=== PATIENT | female | born 2000 | race Native Hawaiian/Other Pacific Islander ===

== ENCOUNTER → 2021-10-24 08:53 | Outpatient (CLI) | payer OTHER, SELFPAY ==
[2021-10-24 10:24] LABS: Alanine Aminotransferase 16 IU/L (<35); Albumin 4.2 g/dL (3.5-5.0); Albumin Globulin Ratio 1.6 (1.0-2.8); Alkaline Phosphatase 68 U/L (38-126); Aspartate Aminotransferase 18 IU/L (14-36); BUN Creatinine Ratio 13.5 (6-22); Bilirubin Total 0.4 mg/dL (0.2-1.3); Blood Urea Nitrogen 10 mg/dL (7-17); Calcium 9.2 mg/dL (8.4-10.2); Carbon Dioxide 22 mmol/L (22-32); Chloride 108 mmol/L (98-107); Cholesterol 155 mg/dL (140-199); Estimated Glomerular Filt Rate > 60 mL/min (>60); Globulin 2.7 g/dL (1.7-4.1); Glucose 83 mg/dL (70-100); HDL Cholesterol 42 mg/dL (40-60); HEMOLYSIS < 15 (0-50); LDL Cholesterol Calculated 95 mg/dL (<100); Potassium 4.4 mmol/L (3.4-5.1); Sodium 139 mmol/L (137-145); Total Protein 6.9 g/dL (6.3-8.2); Triglycerides 88 mg/dL (35-150)
[2021-10-24 10:43] LABS: Prolactin 3.1 ng/mL (3.0-18.6)
[2021-10-25 07:36] LABS: Insulin Level Total 11.4 uIU/mL (2.6-24.9)
== END ==
PROVIDERS: Referring Provider Obstetrics & Gynecology; Visit Provider Obstetrics & Gynecology
DX: Z00.00 Encounter for general adult medical examination without abnormal findings (principal); E28.2 Polycystic ovarian syndrome; E66.9 Obesity, unspecified
CPT/HCPCS: 36415; 80053; 80061; 83525; 84146

== ENCOUNTER → 2021-11-12 07:39 | Outpatient (CLI) | payer OTHER, SELFPAY ==
[2021-11-12 08:52] LABS: Prolactin 3.2 ng/mL (3.0-18.6)
== END ==
PROVIDERS: Referring Provider Obstetrics & Gynecology; Visit Provider Obstetrics & Gynecology
DX: Z00.00 Encounter for general adult medical examination without abnormal findings (principal)
CPT/HCPCS: 36415; 84146

== ENCOUNTER → 2021-12-12 06:36 | Outpatient (CLI) | payer OTHER, SELFPAY ==
--- NOTE | 2021-12-12 | DI.US.S_ITS ---
PROCEDURE: US TRANSVAGINAL COMPARISON: None. INDICATIONS: Encounter for fertility testing FINDINGS: The uterine body is retroverted measuring 3.3 x 3.7 x 6.6 cm. No uterine mass. Normal trilaminar appearance of the endometrium measuring 1 cm in thickness. The right ovary measures 2.3 x 2.6 x 4.1 cm (volume 12.3 cubic cm). There are total of 29 follicles in the right ovary, 28 of which measure less than 1 cm in maximum diameter. The remaining follicle measures 1.2 x 1.8 x 1.9 cm. The left ovary measures 2.9 x 4.0 x 5.1 cm (volume 29 cubic cm). There are a total of 20 follicles in the left ovary, 17 of which measure less than 1 cm. Three follicles measuring greater than 1 cm with the following dimensions 1.0 x 1.8 x 1.9 cm; 2.1 x 2.3 x 2.8 cm; and 2.0 x 2.1 x 2.4 cm. There is also what appears to represent hemorrhagic cyst in the left ovary measuring 2.1 x 2.2 x 2.4 cm. Trace free fluid anterior to the left adnexa. IMPRESSION: Numerous bilateral follicles - 29 total in the right ovary and 20 total in the left ovary. Dictated by: Luke Contreras M.D. on 12/12/2021 at 8:40 Approved by: Luke Contreras M.D. on 12/12/2021 at 8:45
== END ==
PROVIDERS: Referring Provider Obstetrics & Gynecology; Visit Provider Obstetrics & Gynecology
DX: Z31.41 Encounter for fertility testing (principal)
CPT/HCPCS: 76830

== ENCOUNTER → 2022-01-12 08:25 | Outpatient (CLI) | payer OTHER, SELFPAY ==
--- NOTE | 2022-01-12 | DI.US.S_ITS ---
PROCEDURE: US PELVIC COMPLETE INDICATIONS: Encounter for other procreative management TECHNIQUE: Real-time scanning was performed of the pelvic organs, with image documentation. Additional endovaginal scanning was necessary due to incomplete visualization of the adnexal and endometrial structures by transabdominal scanning. COMPARISON: [facility], US, US TRANSVAGINAL, 12/12/2021, 7:58. [facility]ound, US, US PELVIC COMPLETE WITH TRANSVAGINAL, 12/03/2021, 8:32. FINDINGS: Uterus: Uterus is retroverted and normal in size at 7.4 x 4 x 6 x 3.7 cm. The myometrium is homogeneous. The endometrium measures 7.6 mm combined thickness. Ovaries: The right ovary measures 4.1 x 3.5 x 2.9 cm. The left ovary measures 4.2 x 2 x 2 x 3.6 cm. The ovaries have a normal sonographic appearance. No adnexal masses are seen. Follicle count: Right ovary: 24 follicles smaller than 10 mm, 4 follicles larger than 10 mm 11 x 11 x 9 mm 23 x 13 x 8 mm 28 x 20 x 22 mm 13 x 13 x 7 mm Left ovary: 16 follicles smaller than 10 mm, 2 follicles larger than 10 mm. 12 x 13 x 11 mm 14 x 12 x 13 mm Other: A mild amount of free pelvic fluid is seen, which is considered to be within physiologic limits. IMPRESSION: Follicle count above. We strive to produce accurate, complete, and clear reports of imaging services. To assist us in improving patient care, this report was composed using standard report templates and voice recognition software. Therefore, it may contain abnormal punctuation, insertions and/or omissions. Occasional wrong-word or sound-alike substitutions may occur. Though we review the report and make efforts to correct it, we do recommend that the report be read carefully in proper context to recognize any text inaccuracies. Dictated by: Sy Dow M.D. on 01/12/2022 at 9:42 Approved by: Sy Dow M.D. on 01/12/2022 at 9:45
== END ==
PROVIDERS: Referring Provider Obstetrics & Gynecology; Visit Provider Obstetrics & Gynecology
DX: Z31.89 Encounter for other procreative management (principal)
CPT/HCPCS: 76830; 76856

== ENCOUNTER → 2022-02-11 07:43 | Outpatient (CLI) | payer OTHER, SELFPAY ==
--- NOTE | 2022-02-11 | DI.US.S_ITS ---
PROCEDURE: US PELVIC COMPLETE INDICATIONS: FOLLICLE COUNT AND ENDOMETRIAL TYPE TECHNIQUE: Real-time scanning was performed of the pelvic organs, with image documentation. Additional endovaginal scanning was necessary due to incomplete visualization of the adnexal and endometrial structures by transabdominal scanning. COMPARISON: [facility], , US PELVIC COMPLETE, 01/12/2022, 9:34. FINDINGS: Uterus: Uterus is retroverted and normal in size at 6.5 x 3.9 x 3.7 cm. The myometrium is homogeneous. The endometrium measures 9 mm combined thickness. Trilaminar appearance. Ovaries: The right ovary measures 3.6 x 2.1 x 2.2 cm, with a calculated ovarian volume of 9 cc. Greater than 29 follicles are present, all less than 10 millimeters. The left ovary measures 4.5 x 1.9 x 2.2 cm, with a calculated ovarian volume of 10 cc. Approximately 27 are greater follicles present, 4 are 10 mm or greater: -1.0 x 1.0 x 0.7 centimeters -1.5 x 1.0 x 0.8 centimeters -0.9 x 1.0 x 0.4 centimeters -0.9 x 1.1 x 0.6 centimeters No adnexal masses are seen. Other: No pathologic free abdominal or pelvic fluid. IMPRESSION: Follicle count as above. We strive to produce accurate, complete, and clear reports of imaging services. To assist us in improving patient care, this report was composed using standard report templates and voice recognition software. Therefore, it may contain abnormal punctuation, insertions and/or omissions. Occasional wrong-word or sound-alike substitutions may occur. Though we review the report and make efforts to correct it, we do recommend that the report be read carefully in proper context to recognize any text inaccuracies. Dictated by: Suhas Luna M.D. on 02/11/2022 at 12:53 Approved by: Suhas Luna M.D. on 02/11/2022 at 13:05
== END ==
PROVIDERS: Referring Provider Obstetrics & Gynecology; Visit Provider Obstetrics & Gynecology
DX: Z31.89 Encounter for other procreative management (principal)
CPT/HCPCS: 76830; 76856

== ENCOUNTER → 2022-03-16 08:09 | Outpatient (CLI) | payer OTHER, SELFPAY ==
--- NOTE | 2022-03-16 | DI.US.S_ITS ---
PROCEDURE: US TRANSVAGINAL INDICATIONS: FOLLICULAR DEVELOPMENT AND ENDO TYPE. TECHNIQUE: Real-time transvaginal scanning was performed of the pelvic organs, with image documentation. COMPARISON: [facility], , US TRANSVAGINAL, 12/12/2021, 7:58. FINDINGS: Uterus: Uterus is retroverted and normal in size at 7.1 x 4.4 x 3.5 cm. The myometrium is homogeneous. The endometrium measures 8 mm combined thickness. Probable proliferative phase endometrium. Small volume of complex fluid likely present in the uterine cavity. Ovaries: The right ovary measures 3.6 x 2.2 x 2.0 cm, with a calculated ovarian volume of 8 cc. Multiple follicles are present, at least 28. One follicle is 1 centimeter or greater in size, measuring 1.0 x 1.0 x 0.7 centimeters. The left ovary measures 4.2 x 2.0 x 2.3 cm, with a calculated ovarian volume of 10 cc. Multiple follicles are present, at least 29. One follicle is 1 centimeter or greater in size, measuring 1.0 x 1.3 x 0.9 centimeters. No adnexal masses are seen. Other: No pathologic free abdominal or pelvic fluid. IMPRESSION: 1. Multiple small follicles present in both ovaries. 2. Endometrial thickness of 8 millimeters. We strive to produce accurate, complete, and clear reports of imaging services. To assist us in improving patient care, this report was composed using standard report templates and voice recognition software. Therefore, it may contain abnormal punctuation, insertions and/or omissions. Occasional wrong-word or sound-alike substitutions may occur. Though we review the report and make efforts to correct it, we do recommend that the report be read carefully in proper context to recognize any text inaccuracies. Dictated by: Suhas Luna M.D. on 03/16/2022 at 9:19 Approved by: Suhas Luna M.D. on 03/16/2022 at 9:28
== END ==
PROVIDERS: Referring Provider Obstetrics & Gynecology; Visit Provider Obstetrics & Gynecology
DX: Z31.89 Encounter for other procreative management (principal); N83.9 Noninflammatory disorder of ovary, fallopian tube and broad ligament, unspecified
CPT/HCPCS: 76830

== ENCOUNTER → 2024-04-03 17:13 | Outpatient (CLI) | payer OTHER, SELFPAY ==
--- NOTE | 2024-04-03 | DI.RAD.S_ITS ---
PROCEDURE: XR KNEE RT 1TO2V INDICATIONS: KNEE PAIN TECHNIQUE: 2 views of the knee were acquired. COMPARISON: None. FINDINGS: Bones: No fractures or dislocations. No suspicious bony lesions. Soft tissues: Small joint effusion. No suspicious soft tissue calcifications. IMPRESSION: Small right knee joint effusion, otherwise no acute bony abnormality. Dictated by: Abner Villasenor M.D. on 04/03/2024 at 21:59 Approved by: Abner Villasenor M.D. on 04/03/2024 at 21:59
--- NOTE | 2024-04-03 | DI.RAD.S_ITS ---
PROCEDURE: XR KNEE LT 1TO2V INDICATIONS: KNEE PAIN TECHNIQUE: 1 views of the knee were acquired. COMPARISON: None. FINDINGS: Bones: No fractures or dislocations. No suspicious bony lesions. Soft tissues: No joint effusion. No suspicious soft tissue calcifications. IMPRESSION: No acute bony abnormality or significant effusion. Dictated by: Abner Villasenor M.D. on 04/03/2024 at 21:58 Approved by: Abner Villasenor M.D. on 04/03/2024 at 21:58
== END ==
PROVIDERS: PCP Registered Nurse; Referring Provider Registered Nurse; Visit Provider Registered Nurse
DX: M25.561 Pain in right knee (principal); M25.562 Pain in left knee; M25.461 Effusion, right knee; G89.29 Other chronic pain
CPT/HCPCS: 73560

== ENCOUNTER → 2024-07-07 16:13 | Outpatient (CLI) | payer OTHER, SELFPAY ==
--- NOTE | 2024-07-07 16:14 | DI.MRI.S_ITS ---
PROCEDURE: MR BRAIN (PITUITARY) WWO CON INDICATIONS: PITUITARY ADENOMA TECHNIQUE: Noncontrast sagittal and axial FLAIR, axial gradient echo, axial diffusion and ADC through the brain. Thin-slice sagittal and coronal T1 spin echo, coronal T2 fast spin echo through the pituitary. After the administration contrast, optional dynamic coronal T1 spin echo, thin-slice coronal and sagittal T1 spin echo images through the pituitary fossa; axial and coronal and sagittal T1 spin echo with fat saturation through the brain. COMPARISON: None. FINDINGS: Image quality: Excellent. Pituitary Gland: The pituitary gland demonstrates normal signal and bulk. On the postcontrast imaging, no masses or abnormally enhancing areas are seen. The pituitary stalk and infundibulum have an unremarkable appearance. A normal appearing pituitary bright spot is seen posteriorly on the precontrast sagittal T1-weighted images. The optic chiasm and the ventral forebrain have an unremarkable appearance. CSF Spaces: Ventricles are normal in size and shape. Basal cisterns are patent. No extra-axial fluid collections. Brain: No intracranial bleeds or mass effects. No abnormal intracranial enhancement. Parra-white matter interface is intact. Diffusion weighted images demonstrate no acute ischemic insults. Brainstem is normal. Normal intravascular flow voids are present. Skull and face: Calvarial marrow is normal in signal. Orbits appear normal. Sinuses: Sinuses and mastoids are clear. IMPRESSION: Unremarkable pituitary study, without masses or abnormal enhancement seen. Dictated by: Sy Dow M.D. on 07/07/2024 at 16:38 Approved by: Sy Dow M.D. on 07/07/2024 at 16:40
== END ==
PROVIDERS: PCP Registered Nurse; Referring Provider Registered Nurse; Visit Provider Registered Nurse
DX: D35.2 Benign neoplasm of pituitary gland (principal)
CPT/HCPCS: 70553; A9579

== ENCOUNTER → 2024-10-26 14:30 | Outpatient (ROUT) | payer OTHER, SELFPAY ==
[2024-10-26 14:45] LABS: INR 1.1 (0.9-1.3); Prothrombin Time 11.9 SECONDS (9.4-12.5)
[2024-10-26 14:48] LABS: PTT Partial Thromboplastin Tim 34 SECONDS (25.1-36.5)
== END ==
LOC: LAB 14:31
PROVIDERS: PCP Registered Nurse; Visit Provider Registered Nurse
DX: R23.3 Spontaneous ecchymoses (principal)
CPT/HCPCS: 85610; 85730